=== PATIENT | female | born 1965 | race Caucasian/White ===

== ENCOUNTER 2021-06-13 10:34 | Emergency (ER) | payer BC ==
[2021-06-13 10:42] VITALS: BP 142/93; PULSE 81; RESP 18; TEMP 98.6
--- NOTE | 2021-06-13 11:50 | ED ---
General Adult HPI - General Chief complaint: Upper Respiratory Infection Stated complaint: Covid+/BAM Time Seen by Provider: 06/13/21 10:44 Source: patient, RN notes reviewed Mode of arrival: ambulatory Limitations: no limitations - History of Present Illness Initial comments: 55-year-old female presents emergency Department with chief complaint of covid 19. She states symptoms started yesterday tested positive today and [facility] urgent [facility]. Patient states that she has had prior vaccine. Patient complains of bodyaches fever congestion cough. Patient denies any exertional symptoms. No other complaints. - Related Data Allergies Allergy/AdvReac Type Severity Reaction Status Date / Time No Known Allergies Allergy Verified 06/13/21 10:42 Review of Systems ROS Statement: Those systems with pertinent positive or pertinent negative responses have been documented in the HPI. ROS Other: All systems not noted in ROS Statement are negative. Past Medical History Past Medical History: No Reported History History of Any Multi-Drug Resistant Organisms: None Reported Past Surgical History: No Surgical Hx Reported Past Psychological History: No Psychological Hx Reported Smoking Status: Never smoker Past Alcohol Use History: Occasional Past Drug Use History: None Reported General Exam Limitations: no limitations General appearance: alert, in no apparent distress Head exam: Present: atraumatic, normocephalic, normal inspection Eye exam: Present: normal appearance, PERRL, EOMI. Absent: scleral icterus, conjunctival injection, periorbital swelling ENT exam: Present: normal exam, mucous membranes moist Neck exam: Present: normal inspection. Absent: tenderness, meningismus, lymphadenopathy Respiratory exam: Present: normal lung sounds bilaterally. Absent: respiratory distress, wheezes, rales, rhonchi, stridor Cardiovascular Exam: Present: regular rate, normal rhythm, normal heart sounds. Absent: systolic murmur, diastolic murmur, rubs, gallop, clicks Neurological exam: Present: alert, oriented X3, CN II-XII intact Skin exam: Present: warm, dry, intact, normal color. Absent: rash Course Vital Signs 06/13/21 10:38 Temperature 98.6 F Pulse Rate 81 Respiratory 18 Rate Blood Pressure 142/93 O2 Sat by Pulse 99 Oximetry Medical Decision Making - Medical Decision Making Patient is positive for covid 19. Patient did receive monoclonal antibodies of discharge in stable condition. Parameters were discussed. Disposition Clinical Impression: COVID-19 Disposition: HOME SELF-CARE Condition: Stable Instructions (If sedation given, give patient instructions): Coronavirus Disease 2019 (COVID-19) Additional Instructions: Please return to the Emergency Department if symptoms worsen or any other concerns. Is patient prescribed a controlled substance at d/c from ED?: No Referrals: Choco Boggs MD [Primary Care Provider] - 1-2 days Time of Disposition: 11:50
[2021-06-13] MEDS ORDERED: SODIUM CHLORIDE 0.9% 50 ML IVPB ONE (12:00)
[2021-06-13] MEDS ORDERED: BAMLANIVIMAB (EUA) 700 MG, ETESEVIMAB (EUA) 1,400 MG in SODIUM CHLORIDE 0.9% 100 ML IVPB ONE (12:00)
== END 2021-06-13 14:00 | disposition home or self-care (01) ==
LOC: EC 10:34
DX: U07.1 COVID-19 (principal)
CPT/HCPCS: 99283; J3490